=== PATIENT | male | born 1990 | race Caucasian/White ===

== ENCOUNTER → 2016-07-01 | Outpatient (CLI) | payer OTHER ==
--- NOTE | 2016-07-01 12:28 | DIAGNOSTIC IMAGING REPORT ---
ULTRASOUND-GUIDED FINE-NEEDLE ASPIRATION OF A RIGHT AXILLARY LYMPH NODE HISTORY: ATTN R AXILLA SWOLLEN LYMPH NODE R AXILLARY COMPARISON: Right axillary ultrasound outside hospital 05/22/2016. PROCEDURE: Written informed consent was obtained. The right axilla was prepped and draped in the usual sterile fashion. 1% lidocaine was used for local anesthesia. A total of 2 passes using a 25-gauge needle were made through dominant right axillary lymph node under ultrasound guidance. Specimens were given to the on-site pathologist who determined adequate tissue for diagnosis. The patient tolerated the procedure well. There were no immediate complications. IMPRESSION: Successful ultrasound-guided fine-needle aspiration of a right axillary lymph node. Electronically signed by: Chetan Banks M.D. 07/01/2016 12:26 PM Dictated Date/Time: 07/01/2016 12:25 PM
== END | disposition home or self-care (01) ==
LOC: C.ULTR 10:37
PROVIDERS: ATTEND Physician Assistant
DX: R59.0 Localized enlarged lymph nodes (principal)